=== PATIENT | male | born 1965 | race Caucasian/White ===

== ENCOUNTER 2018-11-15 16:32 | Emergency (ER) | payer SELFPAY ==
[~2018-11-15] VITALS: Ht 172.7 cm; Wt 83.9 kg
[2018-11-15 19:18] VITALS: BP 150/98
== END 2018-11-15 19:18 | disposition home or self-care (01) ==
LOC: ED 16:32
DX: G51.0 Bell's palsy (principal); I10 Essential (primary) hypertension
CPT/HCPCS: J7512